=== PATIENT | female | born 1980 | race Caucasian/White ===

== ENCOUNTER → 2023-03-11 | Outpatient (CLI) | payer OTHER ==
[2023-03-11 10:59] LABS: FREE T4 (FREE THYROXINE) 2.34 ng/dL (0.76-1.46)
[2023-03-11 11:21] LABS: THYROID STIMULATING HORMONE < 0.01 uIU/mL (0.36-3.74)
== END | disposition home or self-care (01) ==
LOC: LABMN 10:14
PROVIDERS: ATTEND Chiropractor
DX: Z00.00 Encounter for general adult medical examination without abnormal findings (principal); E04.9 Nontoxic goiter, unspecified
CPT/HCPCS: 84439; 84443; 84481

== ENCOUNTER → 2023-05-31 | Outpatient (CLI) | payer OTHER ==
[2023-05-31 08:40] LABS: FREE T4 (FREE THYROXINE) 1.59 ng/dL (0.76-1.46)
[2023-05-31 09:15] LABS: THYROID STIMULATING HORMONE < 0.01 uIU/mL (0.36-3.74)
== END | disposition home or self-care (01) ==
LOC: LABMN 07:40
PROVIDERS: ATTEND Chiropractor
DX: E04.9 Nontoxic goiter, unspecified (principal)
CPT/HCPCS: 84439; 84443; 84481